=== PATIENT | male | born 1945 | race Caucasian/White ===

== ENCOUNTER 2016-11-10 15:51 | Emergency (ER) | payer OTHER, MEDICARE ==
[~2016-11-10] VITALS: Ht 180.3 cm; Wt 97.5 kg
[~2016-11-10 15:51] MED LIST: AVODART0.5 MG PO; LISINOPRIL10 MG PO; LOPRESSOR 25MG25 MG PO
--- NOTE | 2016-11-10 16:27 | ED GI/GU/ABDOMINAL COMPLAINT ---
History of Present Illness General Chief Complaint: Upper Respiratory Sx/Fever Stated Complaint: SENT IN BY FLU? HERNIA? Source: patient, family, PCP Exam Limitations: no limitations Vital Signs & Intake/Output Vital Signs & Intake/Output Vital Signs Date Time Temp Pulse Resp B/P Pulse O2 O2 Flow FiO2 Ox Delivery Rate 11/10 2320 96.9 105 20 189/100 96 Room Air 11/10 2134 97.4 94 20 184/81 97 Room Air 11/10 1811 97.8 89 20 195/93 96 Room Air 11/10 1750 94 Room Air 11/10 1600 96.3 75 16 188/110 94 Room Air ED Intake and Output 11/11 0000 11/10 1200 Intake Total 1000 Output Total Balance 1000 Intake, IV 1000 Patient 215 lb Weight Allergies Coded Allergies: MDX - Azithromycin (From ZITHROMAX) (DIARRHEA 02/26/12) MDX - Bee Venom (BEE VENOM) (ANAPHYLAXIS 02/26/12) Reconcile Medications Aspirin (Ecotrin*) 81 MG TABLET.DR 1 TAB PO DAILY HEART HEALTH (Reported) Dutasteride (Avodart) 0.5 MG CAPSULE 1 CAP PO DAILY UNK (Reported) Folic Acid 0.8 MG CAPSULE 1 TAB PO D BLOOD HEALTH (Reported) Magnesium Oxide (Magnesium) 400 MG CAPSULE 1 CAP PO DAILY BLOOD HEALTH ( Reported) Metoprolol Tartrate (Lopressor) 25 MG TABLET 1 TAB PO BID BP (Reported) Multiple Vitamin (Multivitamins) 1 EACH TABLET 1 TAB PO DAILY BLOOD HEALTH ( Reported) Triage Note: PT HAS BEEN VOMITING AND HAVING DIARRHEA SINCE THIS AM. PT HAD DR. GREGORIO. WITH DR. SAUNDERS THIS AM TO MAKE SURE THAT HIS UMBILICLA HERNIA IS NOT INCARCERATED. PT NEEDS CT SCAN OF ABD Triage Nurses Notes Reviewed? yes Onset: Abrupt Duration: day(s): (1) Timing: multiple episodes today Quality/Severity: fullness, moderate Activities at Onset: none No Modifying Factors: none Associated Symptoms: abdominal pain, nausea/vomiting HPI: This is a 71 year old male with history of previous umbilical hernia repair sent in by Dr. Oquendo to rule out SBO. Multiple episodes of vomiting today. He was evaluated in the office by his surgeon and sent for CT scan. No fever or chills. Last BM this morning. History of persistent umbilical bulge for the past few months but has gotten a little larger. (ANGELIC MD,SHARLENE) Past History Travel History Traveled to [place] past 21 day No Medical History Neurological: LYME EENT: [place] Cardiovascular: CAD, hypertension, CABG 2009 Hepatic: cirrhosis, hepatic encephalopathy Renal: benign prost hyperplasia Psychiatric: alcohol dependence Cancer(s): HEPATOCELLULAR CARCINOMA Psychosocial History Who do you live with Family What is your primary language Chadian Tobacco Use: Quit >30 days ago ETOH Use: denies use Illicit Drug Use: denies illicit drug use (SHARLENE ATWOOD MD) Medical History Any Pertinent Medical History? see below for history Surgical History Surgical History: non-contributory Family History Hx Contributory? No (SERA HUNG,MEHDI Zeng) Review of Systems Review of Systems Constitutional: Denies: chills, fever. EENTM: Reports: no symptoms. Respiratory: Denies: cough, short of breath. Cardiovascular: Denies: chest pain. GI: Reports: abdominal pain, bloating, nausea, vomiting. Denies: constipation. Genitourinary: Reports: no symptoms. Musculoskeletal: Reports: no symptoms. Skin: Reports: no symptoms. Neurological/Psychological: Reports: no symptoms. Hematologic/Endocrine: Denies: bruising, bleeding, polyuria, polydipsia. Immunologic/Allergic: Denies: splenectomy. All Other Systems: Reviewed and Negative (SHARLENE ATWOOD MD) Physical Exam Physical Exam General Appearance: well developed/nourished, alert, awake, mild distress, obese Head: atraumatic, normal appearance Eyes: Bilateral: normal appearance, PERRL, EOMI. Ears, Nose, Throat, Mouth: hearing grossly normal, moist mucous membrane Neck: normal inspection, supple, full range of motion Respiratory: normal breath sounds, chest non-tender, no respiratory distress Cardiovascular: regular rate/rhythm Peripheral Pulses: 2+ radial (R), 2+ radial (L) Gastrointestinal: soft, hyperactive bowel sounds, distended, 2 x 2 inch umbilical dislocolored umbilical hernia, minimal tenderness to palpation Extremities: normal range of motion Neurologic/Psych: no motor/sensory deficits, awake, alert, oriented x 3 Skin: intact, normal color, warm/dry Core Measures ACS in differential dx? No Severe Sepsis Present: No Septic Shock Present: No (SHARLENE ATWOOD MD) Progress Differential Diagnosis: sbo, INCARCERATED HERNIA, STRANGULATED HERNIA, VOLUME REPLETION, YESSI, GASTRITIS Diagnostic Imaging: Viewed by Me: CT Scan. Discussed w/RAD: CT Scan. Radiology Impression: PATIENT: ROBBIE BUSH PRESENT AGE: 71 PATIENT ACCOUNT NO: [id number] : 46 LOCATION: [facility] ORDERING PHYSICIAN: SHARLENE ATWOOD MD SERVICE DATE: 11/10/16 EXAM TYPE: CAT - CT ABD & PELVIS W IV CONTRAST EXAMINATION: CT ABDOMEN AND PELVIS WITH CONTRAST CLINICAL INFORMATION: Incarcerated umbilical hernia. Vomiting. COMPARISON: None. TECHNIQUE: Multidetector volumetric imaging was performed of the abdomen and pelvis before and after the IV administration of 95 mL of Optiray 320 intravenous contrast. Sagittal and coronal reformatted images were obtained on the technologist's workstation. DLP: 818.28 mGy-cm FINDINGS: LUNG BASES: Status post median sternotomy. Surgical clips in the mediastinum. The lung bases are clear. There are calcifications of the pleura at lung bases posteriorly. LIVER, GALLBLADDER, AND BILIARY TREE: The parenchyma of the liver is mildly coarsened with diffuse low attenuation. No focal liver lesion. No intrahepatic bile duct dilatation. The gallbladder is unremarkable with no evidence of radiopaque gallstones, gallbladder wall thickening, or obvious pericholecystic inflammatory changes. PANCREAS: Unremarkable. SPLEEN: Unremarkable. ADRENAL GLANDS: Unremarkable. KIDNEYS AND URETERS: The kidneys are normal in size, shape, and attenuation. No hydronephrosis, hydroureter, or calculi seen. No perinephric stranding. BLADDER: Unremarkable. GASTROINTESTINAL TRACT: No acute change of the bowel. No bowel obstruction. No bowel wall thickening or edema. This is mild diverticulosis of the colon with most of the diverticula in the ascending colon. No diverticulitis. The appendix is normal. The small bowel loops are normal. ABDOMINAL WALL: No significant hernia is appreciated. LYMPH NODES: There is a fat-containing umbilical hernia. This does not contain bowel loops. The defect measures 1.6 cm superior inferior at the abdominal wall. The herniated fat pocket bulges the umbilicus and measures 3.1 x 3.8 x 3.7 cm in size. VASCULAR: Unremarkable. PELVIC VISCERA: Unremarkable. OSSEOUS STRUCTURES: Degenerative change of the endplates of the lower thoracic and lumbar spine vertebrae and the lower lumbar spine facet joints. IMPRESSION: 1. No acute abnormality CT scan abdomen and pelvis. No incarcerated hernia. There is a fat-containing umbilical hernia. No acute change of the bowel. 2. Coarse low attenuation of the liver parenchyma. DICTATED BY: AURORA PRAJAPATI MD DATE/TIME DICTATED:11/10/161802 PRODUCTION LEADER:YOLI DATE/TIME TRANSCRIBED:11/10/161802 CONFIDENTIAL, DO NOT COPY WITHOUT APPROPRIATE AUTHORIZATION. <Electronically signed in Other Vendor System> SIGNED BY: AURORA PRAJAPATI MD 11/10/16 1821 Initial ED EKG: NSR Hand-Off Endorsed To: MEHDI ZAMORA MD Endorsed Time: 1913 Pending: labs (REPEAT LACTIC) (ANGELIC HUNG,SHARLENE) Plan of Care: Orders Procedure Date/time Status LACTIC ACID 11/10 214 Complete LACTIC ACID 11/10 1938 Complete URINALYSIS 11/10 1638 Complete TROPONIN LEVEL 11/10 1638 Complete PARTIAL THROMBOPLASTIN TIME 11/10 1638 Complete PROTHROMBIN TIME 11/10 1638 Complete LACTIC ACID 11/10 1638 Complete COMPREHENSIVE METABOLIC PANEL 11/10 1638 Complete CBC WITHOUT DIFFERENTIAL 11/10 1638 Complete EKG 11/10 1638 Active TYPE & SCREEN (NOT X-MATCH) 11/10 1638 Complete Laboratory Tests 11/10/16 2211: Lactic Acid 1.8 11/10/16 1945: Lactic Acid 3.0 H, Urine Color STRAW, Urine Clarity CLEAR, Urine pH 7.5, Ur Specific Glendo 1.010, Urine Protein TRACE H, Urine Ketones NEG, Urine Nitrite NEG, Urine Bilirubin NEG, Urine Urobilinogen 0.2, Ur Leukocyte Esterase NEG, Ur Microscopic SEDIMENT EXAMINED, Urine RBC 1-3, Urine Hemoglobin SMALL H, Urine Glucose NEG 11/10/16 1701: Anion Gap 15, Estimated GFR > 60, BUN/Creatinine Ratio 8.8, Glucose 140 H, Lactic Acid 2.2 H, Calcium 9.1, Total Bilirubin 1.9 H, AST 54, ALT 30, Alkaline Phosphatase 140 H, Troponin I 0.02, Total Protein 8.1, Albumin 3.7, Globulin 4.4 H, Albumin/Globulin Ratio 0.8 L, PT 16.8 H, INR 1.61 H, APTT 37 , CBC w Diff NO MAN DIFF REQ, RBC 4.38 L, MCV 99.6 H, MCH 33.9 H, RDW 14.0, MPV 10.6 H, Gran % 74.4, Lymphocytes % 17.1 L, Monocytes % 8.1, Eosinophils % 0.2, Basophils % 0.2, Absolute Granulocytes 4.8, Absolute Lymphocytes 1.1 L, Absolute Monocytes 0.5, Absolute Eosinophils 0, Absolute Basophils 0, PUBS MCHC 34.0 Comments: Patient's lactic acid has increased. Patient denies any pain. There is no nausea or vomiting. Patient will receive more fluids and a repeat lactic acid. (SERA HUNG,MEHDI Zeng) Departure Departure Condition: Stable Departure Forms: Customer Survey General Discharge Information (ANGELIC HUNG,SHARLENE) Departure Disposition: HOME OR SELF CARE Clinical Impression Primary Impression: Hernia Referrals: LD BRITO MD (PCP/Family) JERE HUNG,MARIA FERNANDA Espinal. Additional Instructions: RETURN IF THE PAIN RETURNS OR FOR ANY CONCERNS FOLLOW UP WITH DR. OQUENDO TOMORROW (SERA HUNG,MEHDI Zeng)
[2016-11-10 17:14] LABS: ABSOLUTE BASOPHIL COUNT 0 /CUMM (0.0-0.2); ABSOLUTE EOSINOPHIL COUNT 0 /CUMM (0.0-0.7); ABSOLUTE GRANULOCYTE CT 4.8 /CUMM (1.4-6.5); ABSOLUTE LYMPH COUNT 1.1 /CUMM (1.2-3.4); ABSOLUTE MONOCYTE COUNT 0.5 /CUMM (0.10-0.60); BASOPHIL % 0.2 % (0.0-2.0); EOSINOPHIL % 0.2 % (0-5); HEMATOCRIT 43.6 % (42-52); MEAN CORPUSCULAR HGB 33.9 PG (27.0-31.0); MEAN CORPUSCULAR VOLUME 99.6 FL (80.0-94.0); MEAN PLATELET VOLUME 10.6 FL (7.4-10.4); PLATELET COUNT 82 /CUMM (130-400); RED BLOOD CELL CT 4.38 /CUMM (4.70-6.10); WHITE BLOOD CELL COUNT 6.5 /CUMM (4.8-10.8)
[2016-11-10 17:17] LABS: GRANULOCYTE % 74.4 % (42.2-75.2)
[2016-11-10 17:22] LABS: PT 16.8 SEC (9.4-12.5); PTT 37 SEC (25-37)
[2016-11-10] MEDS ORDERED: ASPIRIN EC81 M1 PO (17:45)
[2016-11-10] MEDS ORDERED: FOLIC ACID0.8 M1 PO (17:46)
[2016-11-10] MEDS ORDERED: MAGNESIUM400 M1 PO (17:47)
[2016-11-10] MEDS ORDERED: MULTIVITAMINS1 EAC9 PO (17:48)
--- NOTE | 2016-11-10 18:21 | CT SCAN REPORT ---
EXAMINATION: CT ABDOMEN AND PELVIS WITH CONTRAST CLINICAL INFORMATION: Incarcerated umbilical hernia. Vomiting. COMPARISON: None. TECHNIQUE: Multidetector volumetric imaging was performed of the abdomen and pelvis before and after the IV administration of 95 mL of Optiray 320 intravenous contrast. Sagittal and coronal reformatted images were obtained on the technologist's workstation. DLP: 818.28 mGy-cm FINDINGS: LUNG BASES: Status post median sternotomy. Surgical clips in the mediastinum. The lung bases are clear. There are calcifications of the pleura at lung bases posteriorly. LIVER, GALLBLADDER, AND BILIARY TREE: The parenchyma of the liver is mildly coarsened with diffuse low attenuation. No focal liver lesion. No intrahepatic bile duct dilatation. The gallbladder is unremarkable with no evidence of radiopaque gallstones, gallbladder wall thickening, or obvious pericholecystic inflammatory changes. PANCREAS: Unremarkable. SPLEEN: Unremarkable. ADRENAL GLANDS: Unremarkable. KIDNEYS AND URETERS: The kidneys are normal in size, shape, and attenuation. No hydronephrosis, hydroureter, or calculi seen. No perinephric stranding. BLADDER: Unremarkable. GASTROINTESTINAL TRACT: No acute change of the bowel. No bowel obstruction. No bowel wall thickening or edema. This is mild diverticulosis of the colon with most of the diverticula in the ascending colon. No diverticulitis. The appendix is normal. The small bowel loops are normal. ABDOMINAL WALL: No significant hernia is appreciated. LYMPH NODES: There is a fat-containing umbilical hernia. This does not contain bowel loops. The defect measures 1.6 cm superior inferior at the abdominal wall. The herniated fat pocket bulges the umbilicus and measures 3.1 x 3.8 x 3.7 cm in size. VASCULAR: Unremarkable. PELVIC VISCERA: Unremarkable. OSSEOUS STRUCTURES: Degenerative change of the endplates of the lower thoracic and lumbar spine vertebrae and the lower lumbar spine facet joints. IMPRESSION: 1. No acute abnormality CT scan abdomen and pelvis. No incarcerated hernia. There is a fat-containing umbilical hernia. No acute change of the bowel. 2. Coarse low attenuation of the liver parenchyma.
[2016-11-10 23:20] VITALS: BP 189/100
== END 2016-11-10 23:21 ==
LOC: ERH 15:51
PROVIDERS: Emergency Medicine
DX: K42.9 Umbilical hernia without obstruction or gangrene (principal); C22.0 Liver cell carcinoma; K74.60 Unspecified cirrhosis of liver; I25.10 Atherosclerotic heart disease of native coronary artery without angina pectoris; Z95.1 Presence of aortocoronary bypass graft
CPT/HCPCS: 74177; 81001; 93005; 93010; 96361; 96374; J2405

== ENCOUNTER 2017-03-31 12:27 | Emergency (ER) | payer OTHER, MEDICARE ==
[~2017-03-31 12:27] MED LIST changes: +ASPIRIN EC81 M1 PO; +FOLIC ACID0.8 M1 PO; +MAGNESIUM400 M1 PO; +MULTIVITAMINS1 EAC9 PO
[2017-03-31 13:02] VITALS: BP 00/00
--- NOTE | 2017-03-31 13:12 | ED CRITICAL CARE ---
History of Present Illness General Chief Complaint: Cardiopulmonary Resuscitation Stated Complaint: BIBA FOR CPR Source: EMS Exam Limitations: unable to give history, clinical condition Vital Signs & Intake/Output Vital Signs & Intake/Output Vital Signs Date Time Temp Pulse Resp B/P B/P Pulse O2 O2 Flow FiO2 Mean Ox Delivery Rate 03/31 1302 0 0 03/31 1227 0 0 03/31 1227 82 Allergies Coded Allergies: MDX - Azithromycin (From ZITHROMAX) (DIARRHEA 02/26/12) MDX - Bee Venom (BEE VENOM) (ANAPHYLAXIS 02/26/12) Reconcile Medications Aspirin (Ecotrin*) 81 MG TABLET.DR 1 TAB PO DAILY HEART HEALTH (Reported) Dutasteride (Avodart) 0.5 MG CAPSULE 1 CAP PO DAILY UNK (Reported) Folic Acid 0.8 MG CAPSULE 1 TAB PO D BLOOD HEALTH (Reported) Magnesium Oxide (Magnesium) 400 MG CAPSULE 1 CAP PO DAILY BLOOD HEALTH ( Reported) Metoprolol Tartrate (Lopressor) 25 MG TABLET 1 TAB PO BID BP (Reported) Multiple Vitamin (Multivitamins) 1 EACH TABLET 1 TAB PO DAILY BLOOD HEALTH ( Reported) Triage Nurses Notes Reviewed? yes (i spoke with business development consultant) HPI: Patient presents for evaluation of a sudden episode of unresponsiveness while at home. The patient had been complaining of abdominal pain for the past day or 2 when he suddenly collapsed at the window prior to arrival. CPR was initiated by EMS followed by intubation and a total of 4 cardioversions. Patient was also administered epinephrine and 300 mg of amiodarone. Upon arrival to the emergency department the patient was unresponsive with no CPR in progress due to return of spontaneous circulation upon arrival to the emergency department. Past History Travel History Traveled to [place] past 21 day No Medical History Any Pertinent Medical History? see below for history Neurological: LYME EENT: [place] Cardiovascular: CAD, hypertension, CABG 2009 Hepatic: cirrhosis, hepatic encephalopathy Renal: benign prost hyperplasia Psychiatric: alcohol dependence Cancer(s): HEPATOCELLULAR CARCINOMA Surgical History Surgical History: non-contributory Psychosocial History Who do you live with Family What is your primary language Pashto Family History Hx Contributory? No Review of Systems Review of Systems Constitutional: Reports: see HPI. Comments Patient unable to provide review of systems Physical Exam Physical Exam General Appearance: SEE BELOW Comments: Gen.: Well-nourished, well-developed, status post endotracheal intubation with mechanical ventilation Head: Normocephalic, atraumatic. Eyes: Pupils midpoint and fixed, corneas clouded, no corneal reflexes Ears: Normal inspection bilaterally Nose: Normal inspection Throat/mouth : Endotracheal tube in place Neck: No apparent trauma Heart: No heart tones Lungs: Diminished air entry bilaterally with mechanical ventilation Chest: No apparent trauma, circular indentation of the skin over the sternum consistent with CPR machine Back: No apparent trauma Abdomen: Soft, nondistended, no air entry over the epigastrium or left upper quadrant Extremities: No spontaneous movements, no palpable pulses Neurologic: Unable to assess Skin: Cool, central mottling Psychiatric: Unable to assess Core Measures ACS in differential dx? Yes CVA/TIA Diagnosis: No Severe Sepsis Present: No Septic Shock Present: No Progress Differential Diagnoses I considered the following diagnoses in my evaluation of the patient: dysrhythmia,hyperkalemia,acute ND, acidosis Plan of Care: pt Initial ED EKG: none Rhythm Strip: ventricular fibrillation Comments: Initial evaluation upon presentation to the emergency department revealed that the patient was back in PEA. The patient was treated with CPR, mechanical ventilations and epinephrine every 3 minutes. He was also administered an amp of bicarbonate and 1 g of magnesium. His benzene washer showed a persistence of coarse V. fib. A left tibial interosseous was placed on a me to facilitate fluids and medications as patient's prehospital left upper extremity IV infiltrated during resuscitation. Despite resuscitative efforts in the emergency department the patient only showed 1 brief episode of return of spontaneous circulation that deteriorated quickly into pulseless electrical activity. The patient's pupils are fixed and dilated and he shows no spontaneous respirations. He has no palpable peripheral pulses in the absence of CPR. During the resuscitation the patient's heart monitor showed decreasing amplitude of complexes consistent with deterioration in the response of the heart to CPR and medications. Educational ultrasound performed by me showed no organized heart activity. After lengthy discussion with the family regarding the chances of meaningful recovery after prolonged resuscitation, the patient was pronounced at 13:02 Departure Departure Disposition: Condition: Stable Clinical Impression Primary Impression: Cardiac arrest with ventricular fibrillation Referrals: LD BRITO MD (PCP/Family) Departure Forms: General Discharge Information Procedures Additional Procedures Additional Procedures: intraosseous IV placement Progress: Left tibial intraosseous IV placed by me with sterile technique Critical Care Note Critical Care Note Critical Care Time: 30-74 min
== END 2017-03-31 15:02 | disposition expired ==
LOC: ERH 12:27 → ENTRNSPT 15:32 → CMPTRNSPT 16:15 → ERH 16:21
DX: I46.9 Cardiac arrest, cause unspecified (principal); I48.91 Unspecified atrial fibrillation
CPT/HCPCS: 1387; 94799; 99291